=== PATIENT | male | born 1995 | race Two or more races ===

== ENCOUNTER 2017-07-11 15:05 | Emergency (ER) | payer SELFPAY ==
[~2017-07-11] VITALS: Ht 170.2 cm; Wt 59.0 kg
[2017-07-11 16:55] VITALS: BP 139/72
[2017-07-11] MEDS ORDERED: LIDOCAINE HCL 1% 20ML VIAL (Pyxis) INJ INFIL ONE (17:15)
[2017-07-11] MEDS ORDERED: CEFTRIAXONE SODIUM 250 MG/VIAL IM ONE (17:15)
[2017-07-11] MEDS ORDERED: AZITHROMYCIN 500 MG TABLET PO ONE (17:15)
[2017-07-11 17:48] LABS: CLARITY URINE CLEAR (CLEAR); COLOR URINE YELLOW (YELLOW); GLUCOSE URINE NEGATIVE (NEGATIVE); KETONES URINE NEGATIVE (NEGATIVE); LEUKOCYTE ESTERASE URINE NEGATIVE (NEGATIVE); NITRITE URINE NEGATIVE (NEGATIVE); OCCULT BLOOD URINE NEGATIVE (NEGATIVE); PROTEIN URINE NEGATIVE (NEGATIVE); SPECIFIC GRAVITY URINE 1.009 (1.005-1.030); UROBILINOGEN URINE 0.2 E.U./dL (0.2-1.0)
[2017-07-14 05:25] LABS: CHLAMYDIA TRACHOMATIS NAA Positive (Negative); NEISSERIA GONORRHOEAE NAA Negative (Negative)
== END 2017-07-11 18:30 | disposition home or self-care (01) ==
LOC: ER 17:00
DX: Z20.2 Contact with and (suspected) exposure to infections with a predominantly sexual mode of transmission (principal); F32.9 Major depressive disorder, single episode, unspecified; F90.9 Attention-deficit hyperactivity disorder, unspecified type
CPT/HCPCS: 81003; 87491; 87591; 96372; 99284; J0696; J3490; Z7610

== ENCOUNTER 2017-11-09 20:31 | Emergency (ER) | payer OTHER ==
[~2017-11-09] VITALS: Ht 172.7 cm; Wt 70.0 kg
[2017-11-10 01:03] VITALS: BP 136/96
[2017-11-10 01:37] LABS: BASOPHILS % 0.3 % (0.0-2.0); EOSINOPHILS % 0.7 % (0.0-5.0); HEMATOCRIT. 45.9 % (42.0-52.0); HEMOGLOBIN. 15.6 g/dL (14.0-18.0); LYMPHOCYTES % 31.1 % (20.0-50.0); MEAN CORPUSCULAR HEMOGLOBIN 27.5 pg (28.0-32.0); MEAN CORPUSCULAR VOLUME 80.9 fL (80.0-94.0); MONOCYTES % 8.5 % (2.0-8.0); NEUTROPHILS % 59.4 % (40.0-76.0); PLATELET 293 x1000/uL (130-400); RED BLOOD CELL COUNT 5.68 mill/uL (4.7-6.1); RED CELL DISTRIBUTION WIDTH 14.2 % (11.6-14.6)
[2017-11-10 01:38] LABS: CARBON DIOXIDE 31 mEq/L (21-32); CHLORIDE 106 mEq/L (98-107)
== END 2017-11-10 04:30 | disposition home or self-care (01) ==
LOC: ER 20:36
DX: R00.2 Palpitations (principal); R41.9 Unspecified symptoms and signs involving cognitive functions and awareness; F32.9 Major depressive disorder, single episode, unspecified
CPT/HCPCS: 36415; 80048; 84439; 84443; 84480; 85025; 93005; 99285